=== PATIENT | female | born 1975 | race African-American/Black ===

== ENCOUNTER 2017-03-09 16:20 | Observation (INO) | payer BC ==
[2017-03-09] VITALS (8 sets, daily range): BP systolic 124–190; BP diastolic 71–95; PULSE 76–93; RESP 14–20; TEMP 98.4–99.2; O2SAT 97–100
[~2017-03-09] VITALS: Ht 157.5 cm; Wt 111.7 kg
[2017-03-09] MEDS ORDERED: HUMALOG SQ (16:33)
[2017-03-09] MEDS ORDERED: SODIUM CHLORIDE 0.9% FLUSH 10 ML FLUSH IVF PRN (16:45)
[2017-03-09] MEDS ORDERED: ASPIRIN 325 MG TAB PO ONE (16:45)
[2017-03-09] MEDS ORDERED: cloNIDine HCL 0.2 MG TAB PO ONE (16:45)
--- NOTE | 2017-03-09 16:47 | PD ---
HPI Chief Complaint: Chest Pain Time Seen by Provider: 16:38 Travel History International Travel<30 days: No Contact w/Intl Traveler<30days: No Traveled to known affect area: No History of Present Illness HPI The patient was seen and examined in the presence of the nurse. This patient complains of a 30 minute spell of shortness of breath and vague discomfort and nausea and general unease. She initially thought it might be a panic attack but denies history of anxiety or panic. She denies history of cardiac or pulmonary disease. No alleviating factors. It lasted 30 minutes and resolved on its own. No exacerbating factors. It was not exertionally induced. Severity was moderate. PFSH Past Medical History Anemia: Yes Diabetes: Yes Patient Takes Glucophage: No Hypertension: Yes ?: Not Past Surgical History Abdominal Surgery: Yes (GASTRIC BYPASS) Hysterectomy: Yes Social History Alcohol Use: No Tobacco Use: No Allergies-Medications (Allergen,Severity, Reaction): Coded Allergies: No Known Allergies (Unverified , 03/09/17) Reported Meds & Prescriptions Reported Meds & Active Scripts Active Reported Humalog Inj (Insulin Human Lispro) 1,000 Unit/10 Ml Vial 1-9 Units SQ PUMP Max dose at bedtime:( )units; sugars< 70,(0)units; sugars 150-199,(1)unit; sugars 200-249,(3)units; sugars 250-299,(5)units; sugars 300-349,(7)units; sugars more than 349,(9)units. Review of Systems General / Constitutional: No: Fever Eyes: No: Visual changes HENT: No: Headaches Cardiovascular: No: Chest Pain or Discomfort Respiratory: Positive: Shortness of Breath Gastrointestinal: Positive: Nausea, No: Abdominal Pain Genitourinary: No: Dysuria Musculoskeletal: No: Pain Skin: No Rash Neurologic: No: Weakness Psychiatric: Positive: Anxiety, No: Depression Endocrine: No: Polydipsia Hematologic/Lymphatic: No: Easy Bruising Physical Exam Narrative GENERAL: Well-nourished, well-developed patient in no apparent distress. SKIN: Focused skin assessment reveals no rash and nodules. Skin is Warm and dry. HEAD: Atraumatic. Normocephalic. EYES: Pupils equal and round. No scleral icterus. No injection or drainage. ENT: No nasal bleeding or discharge. Mucous membranes pink and moist. NECK: Trachea midline. No JVD. CARDIOVASCULAR: Regular rate and rhythm. No murmur appreciated. RESPIRATORY: No accessory muscle use. Clear to auscultation. Breath sounds equal bilaterally. GASTROINTESTINAL: Abdomen soft, obese, non-tender, nondistended. Hepatic and splenic margins not palpable. MUSCULOSKELETAL: No obvious deformities. No clubbing. No cyanosis. No edema. NEUROLOGICAL: Awake and alert. No obvious cranial nerve deficits. Motor grossly within normal limits. Normal speech. PSYCHIATRIC: Appropriate mood and affect; insight and judgment normal. Data Data Last Documented VS Vital Signs Date Time Temp Pulse Resp B/P (MAP) Pulse Ox O2 Delivery O2 Flow Rate FiO2 03/09/17 17:29 81 15 176/93 (120) 98 03/09/17 16:46 Room Air 03/09/17 16:27 99.2 Orders Orders Electrocardiogram (03/09/17 16:42) Basic Metabolic Panel (Bmp) (03/09/17 16:42) Ckmb (Isoenzyme) Profile (03/09/17 16:42) Complete Blood Count With Diff (03/09/17 16:42) Prothrombin Time / Inr (Pt) (03/09/17 16:42) Act Partial Throm Time (Ptt) (03/09/17 16:42) Troponin I (03/09/17 16:42) Chest, Single Ap (03/09/17 16:42) Ecg Monitoring (03/09/17 16:42) Iv Access Insert/Monitor (03/09/17 16:42) Oximetry (03/09/17 16:42) Aspirin (Aspirin) (03/09/17 16:45) Sodium Chloride 0.9% Flush (Ns Flush) (03/09/17 16:45) Clonidine (Catapres) (03/09/17 16:45) Beta Hcg (Quant/Titer) (03/09/17 16:42) CKMB (03/09/17 16:48) CKMB% (03/09/17 16:48) Labs Laboratory Tests Test 03/09/17 16:48 White Blood Count 7.2 TH/MM3 Red Blood Count 4.31 MIL/MM3 Hemoglobin 11.8 GM/DL Hematocrit 35.6 % Mean Corpuscular Volume 82.7 FL Mean Corpuscular Hemoglobin 27.4 PG Mean Corpuscular Hemoglobin Concent 33.2 % Red Cell Distribution Width 13.2 % Platelet Count 233 TH/MM3 Mean Platelet Volume 9.7 FL Neutrophils (%) (Auto) 58.2 % Lymphocytes (%) (Auto) 34.0 % Monocytes (%) (Auto) 6.6 % Eosinophils (%) (Auto) 0.5 % Basophils (%) (Auto) 0.7 % Neutrophils # (Auto) 4.2 TH/MM3 Lymphocytes # (Auto) 2.4 TH/MM3 Monocytes # (Auto) 0.5 TH/MM3 Eosinophils # (Auto) 0.0 TH/MM3 Basophils # (Auto) 0.1 TH/MM3 CBC Comment DIFF FINAL Differential Comment Prothrombin Time 10.7 SEC Prothromb Time International Ratio 1.0 RATIO Activated Partial Thromboplast Time 28.4 SEC Blood Urea Nitrogen 14 MG/DL Creatinine 1.20 MG/DL Random Glucose 166 MG/DL Calcium Level 8.9 MG/DL Sodium Level 134 MEQ/L Potassium Level 4.0 MEQ/L Chloride Level 105 MEQ/L Carbon Dioxide Level 21.1 MEQ/L Anion Gap 8 MEQ/L Estimat Glomerular Filtration Rate 59 ML/MIN Total Creatine Kinase 197 U/L Creatine Kinase MB 1.3 NG/ML Creatine Kinase MB % 0.7 % Troponin I LESS THAN 0.02 NG/ML Human Chorionic Gonadotropin, Quant LESS THAN 1 MIU/ML MDM Medical Decision Making Medical Screen Exam Complete: Yes Emergency Medical Condition: Yes Medical Record Reviewed: Yes Differential Diagnosis Anginal equivalent, panic attack, anxiety, GERD Narrative Course I have reviewed the patient's electronic medical record. IV placed I reviewed the EKG which shows sinus rhythm but no ST elevation or ectopy I reviewed the chest x-ray which is normal Extended cardiac monitoring shows sinus rhythm without ectopy CBC is normal Metabolic profile is normal CK is negative Troponin is negative Coagulation studies are normal Patient has accelerated hypertension, dose of clonidine given and I Will reassess Beta hCG is negative Gave her an aspirin. The patient had some vague symptomatology but she is a morbidly obese and hypertensive diabetic supposed chock full of cardiac risk factors. Plus she came in just 30 minutes after her spell so enzymes are not going to be particularly revealing for the initial set. She will be a 23 are observation the chest pain center to rule out cardiac cause of her symptoms. It is suspicious enough is an anginal variant. Diagnosis Primary Impression: Angina pectoris, variant Additional Impressions: Diabetes 1.5, managed as type 1 Hypertension Qualified Codes: I10 - Essential (primary) hypertension Obesity (BMI 30-39.9) Admitting Information Admitting Physician Requests: Observation Hernando Zapata MD Mar 09, 2017 16:47
[2017-03-09 17:15] LABS: CHLORIDE 105 MEQ/L (98-107); SODIUM (NA) 134 MEQ/L (136-145)
[2017-03-09 17:18] LABS: ANION GAP 8 MEQ/L (5-15); BICARBONATE 21.1 MEQ/L (21.0-32.0); BLOOD UREA NITROGEN 14 MG/DL (7-18)
[2017-03-09 17:19] LABS: APTT (PATIENT) 28.4 SEC (24.3-30.1); PROTHROMBIN TIME - PATIENT 10.7 SEC (9.8-11.6)
[2017-03-09 17:21] LABS: AUTOMATED NEUTROPHIL # 4.2 TH/MM3 (1.8-7.7); BASOPHIL # 0.1 TH/MM3 (0-0.2); BASOPHIL % 0.7 % (0.0-2.0); EOSINOPHIL % 0.5 % (0.0-4.0); HEMATOCRIT 35.6 % (35.0-46.0); HEMO FLAGS DIFF FINAL; LYMPHOCYTE # 2.4 TH/MM3 (1.0-4.8); MEAN CELL VOLUME 82.7 FL (80.0-100.0); MEAN CORPUSCULAR HEMOGLOBIN 27.4 PG (27.0-34.0); MEAN CORPUSCULAR HGB CONC 33.2 % (32.0-36.0); MONO % 6.6 % (0.0-8.0); NEUT % 58.2 % (16.0-70.0); PLATELET COUNT 233 TH/MM3 (150-450); RED BLOOD COUNT 4.31 MIL/MM3 (4.00-5.30); RED CELL DISTRIBUTION WIDTH 13.2 % (11.6-17.2); WHITE BLOOD COUNT 7.2 TH/MM3 (4.0-11.0)
[2017-03-09 17:22] LABS: GLOMERULAR FILTRATION RATE 59 ML/MIN (>89)
[2017-03-09 17:25] LABS: CREATINE KINASE 197 U/L (26-192)
[2017-03-09 17:26] LABS: BETA HCG QUANT LESS THAN 1 MIU/ML (0-5)
--- NOTE | 2017-03-09 17:34 | RADRPT ---
EXAM DATE/TIME: 03/09/2017 17:19 [facility] COMPARISON: No previous studies available for comparison. INDICATIONS : Chest pain today. MEDICAL HISTORY : Diabetes mellitus type II. Hypertension SURGICAL HISTORY : Hysterectomy. Gastric bypass. ENCOUNTER: Initial ACUITY: 1 day PAIN SCORE: 9/10 LOCATION: Bilateral chest FINDINGS: A single view of the chest demonstrates the lungs to be symmetrically aerated without evidence of mas s, infiltrate or effusion. The cardiomediastinal contours are unremarkable. Osseous structures are intact. CONCLUSION: No acute disease. Michael Walker MD on March 09, 2017 at 17:32 Board Certified Radiologist. This report was verified electronically.
[2017-03-09 17:37] LABS: CKMB 1.3 NG/ML (0.5-3.6)
[2017-03-09] MEDS ORDERED: MORPHINE SULFATE 4 MG/ML INJ IV PUSH PRN (18:15)
[2017-03-09] MEDS ORDERED: GLUCAGON 1 MG/ML VIAL OTHER PRN (18:15)
[2017-03-09] MEDS ORDERED: ACETAMINOPHEN 500 MG CPLT PO PRN (18:15)
[2017-03-09] MEDS ORDERED: ACETAMINOPHEN/HYDROcodone 325 MG/7.5 MG TAB PO PRN (18:15)
[2017-03-09] MEDS ORDERED: ONDANSETRON HCL 4 MG/2 ML VIAL IV PUSH PRN (18:15)
[2017-03-09] MEDS ORDERED: DEXTROSE 50% IN WATER 50 ML VIAL(D50) IV PUSH PRN (18:15)
[2017-03-09] MEDS ORDERED: INSULIN LISPRO PUMP SQ SCH (18:15)
[2017-03-09] MEDS ORDERED: NITROGLYCERIN 0.4 MG SL 25 TABS/BTL SL PRN (18:15)
[2017-03-09] MEDS ORDERED: SODIUM CHLORIDE 0.9% FLUSH 10 ML FLUSH IV FLUSH PRN (18:15)
[2017-03-09] MEDS ORDERED: hydrALAZINE HCL 20 MG/ML VIAL IV PUSH PRN (18:30)
[2017-03-09] MEDS ORDERED: ENALAPRILAT 1.25 MG/ML VIAL IV PUSH PRN (18:30)
[2017-03-09] MEDS: SODIUM CHLORID 0.9% 500 ML INJ 500 ML IV SCH ×2 (19:50→21:11)
[2017-03-09 20:21] LABS: CREATINE KINASE 149 U/L (26-192)
[2017-03-09] MEDS: SODIUM CHLORIDE 0.9% FLUSH 10 ML FLUSH IV FLUSH SCH (21:00)
[2017-03-09] MEDS: FAMOTIDINE 20 MG TAB PO SCH (21:00)
[2017-03-09] MEDS ORDERED: cloNIDine HCL 0.1 MG TAB PO PRN (22:50)
[2017-03-09 23:12] LABS: CREATINE KINASE 140 U/L (26-192)
[2017-03-09 23:24] LABS: CKMB 0.9 NG/ML (0.5-3.6)
[2017-03-10] VITALS: BP 141/85; PULSE 78; RESP 20; TEMP 98; O2SAT 97
[2017-03-10 04:00] VITALS: BP 134/86; PULSE 72; RESP 20; TEMP 98.4; O2SAT 96
[2017-03-10 06:28] LABS: POTASSIUM 3.4 MEQ/L (3.5-5.1)
[2017-03-10] MEDS: FAMOTIDINE 20 MG TAB PO SCH (07:57)
[2017-03-10 08:00] VITALS: BP 135/86; PULSE 73; PULSE 87; RESP 20; TEMP 98.4; O2SAT 98
[2017-03-10] MEDS ORDERED: POTASSIUM CHLORIDE 20 MEQ CONTROLLED RELEASE TAB PO ONE (08:00)
[2017-03-10] MEDS: SODIUM CHLORIDE 0.9% FLUSH 10 ML FLUSH IV FLUSH SCH (08:04)
[2017-03-10] MEDS ORDERED: ASPIRIN 325 MG TAB PO SCH (09:00)
--- NOTE | 2017-03-10 09:09 | HHI.HP ---
[facility] Primary Care Physician Admission Diagnosis poss anginal eviqualent Diagnoses: (1) Shortness of breath Diagnosis: Principal (2) Hypertensive urgency Diagnosis: Principal (3) TAYLOR (acute kidney injury) Diagnosis: Principal (4) Hypokalemia Diagnosis: Principal Chief Complaint: "I think I was having a panic attack" Travel History International Travel<30 Days: No Contact w/Intl Traveler <30 Da: No Traveled to Known Affected Are: No History of Present Illness 41 year-old -[place] female with diabetes mellitus, history of hypertension, and anemia is admitted to chest pain center. Patient presents stating "I think I was having a panic attack". 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 She states this occurred midday. States symptoms lasted for 45 minutes and were constant during that time. She denies any stressful event at the time of her symptoms but states she has been stressed in general. She states she felt short of breath and nauseous but denies any vomiting. She states her head started hurting as well. She denies any dizziness, lightheadedness, or visual changes. She denies any numbness or tingling in upper or lower extremities. Denies any diaphoresis. Denies any pain to the neck/jaw/back/shoulders. Denies symptoms being associated with exertion. Denies any recent leg swelling. She denies any fevers or chills, recent cold or cough symptoms. Denies any diarrhea. Denies a history of anxiety or depression. Patient denies any history of hyperlipidemia. She states she had a history of hypertension years ago and was on lisinopril but was taken off by her physician as her blood pressure was controlled. She has not been checking her blood pressure recently. She additionally complains of a rash under the breasts which she has had for a while. She states it was red but she has been using [employer] medicated powder and now it is dark. Review of Systems Constitutional: DENIES: Diaphoretic episodes, Fever, Chills, Dizziness Eyes: DENIES: Blurred vision, Double Vision Ears, nose, mouth, throat: DENIES: Throat pain, Ear Pain, Running Nose Respiratory: COMPLAINS OF: Shortness of breath, DENIES: Cough Cardiovascular: DENIES: Chest pain, Lower Extremity Edema Gastrointestinal: COMPLAINS OF: Nausea, DENIES: Constipation, Diarrhea, Vomiting Genitourinary: DENIES: Hematuria, Dysuria Musculoskeletal: DENIES: Back pain, Neck pain Integumentary: COMPLAINS OF: Rash Neurologic: COMPLAINS OF: Headache, DENIES: Paresthesias Psychiatric: DENIES: Depression +Stress Past Family Social History Past Medical History Diabetes mellitus Type 1.5. Uses an insulin pump. Hypertension Anemia Past Surgical History Gastric bypass Hysterectomy Reported Medications Reported Meds & Active Scripts Active Reported Humalog Inj (Insulin Human Lispro) 1,000 Unit/10 Ml Vial 1-9 Units SQ PUMP Max dose at bedtime:( )units; sugars< 70,(0)units; sugars 150-199,(1)unit; sugars 200-249,(3)units; sugars 250-299,(5)units; sugars 300-349,(7)units; sugars more than 349,(9)units. Trulicity Injection once weekly Allergies: Coded Allergies: No Known Allergies (Unverified , 03/09/17) Family History Family history of diabetes and hypertension. No history of FL or stroke. Social History Patient denies any alcohol use. Denies any history of cigarette smoking. Denies history of illicit drug use. Physical Exam Vital Signs Vital Signs Date Time Temp Pulse Resp B/P (MAP) Pulse Ox O2 Delivery O2 Flow Rate FiO2 03/10/17 08:00 98.4 73 20 135/86 (102) 98 03/10/17 04:00 98.4 72 20 134/86 (102) 96 03/10/17 00:00 98.0 78 20 141/85 (103) 97 03/09/17 23:00 76 03/09/17 20:15 98.6 80 20 151/91 (111) 100 03/09/17 19:57 76 14 124/71 (88) 100 03/09/17 19:29 98.4 76 14 124/71 (88) 100 Room Air 03/09/17 17:29 81 15 176/93 (120) 98 03/09/17 16:46 97 Room Air 03/09/17 16:27 99.2 93 15 190/95 (126) 97 Physical Exam Vitals normal. GENERAL: This is a pleasant obese, well-developed patient, in no apparent distress. SKIN: HEAD: Atraumatic. Normocephalic. EYES: No scleral icterus. No injection or drainage. NECK: Trachea midline. No lymphadenopathy. CHEST: No reproducible chest wall tenderness. CARDIOVASCULAR: Regular rate and rhythm without murmurs, gallops, or rubs. RESPIRATORY: Clear to auscultation. Breath sounds equal bilaterally. No wheezes , rales, or rhonchi. GASTROINTESTINAL: Abdomen soft, non-tender, nondistended. No guarding. MUSCULOSKELETAL: No calf tenderness or lower extremity edema bilaterally. NEUROLOGICAL: Awake and alert. Five out of 5 muscle strength in bilateral arms and legs. Normal speech. PSYCHIATRIC: Normal mood and affect. Insight and judgement normal. Laboratory Laboratory Tests Test 03/09/17 16:48 03/09/17 19:45 03/09/17 22:40 03/10/17 05:15 White Blood Count 7.2 Red Blood Count 4.31 Hemoglobin 11.8 Hematocrit 35.6 Mean Corpuscular Volume 82.7 Mean Corpuscular Hemoglobin 27.4 Mean Corpuscular Hemoglobin Concent 33.2 Red Cell Distribution Width 13.2 Platelet Count 233 Mean Platelet Volume 9.7 Neutrophils (%) (Auto) 58.2 Lymphocytes (%) (Auto) 34.0 Monocytes (%) (Auto) 6.6 Eosinophils (%) (Auto) 0.5 Basophils (%) (Auto) 0.7 Neutrophils # (Auto) 4.2 Lymphocytes # (Auto) 2.4 Monocytes # (Auto) 0.5 Eosinophils # (Auto) 0.0 Basophils # (Auto) 0.1 CBC Comment DIFF FINAL Differential Comment Prothrombin Time 10.7 Prothromb Time International Ratio 1.0 Activated Partial Thromboplast Time 28.4 Blood Urea Nitrogen 14 12 Creatinine 1.20 1.00 Random Glucose 166 139 Calcium Level 8.9 8.3 Sodium Level 134 139 Potassium Level 4.0 3.4 Chloride Level 105 108 Carbon Dioxide Level 21.1 23.0 Anion Gap 8 8 Estimat Glomerular Filtration Rate 59 73 Total Creatine Kinase 197 149 140 Creatine Kinase MB 1.3 1.0 0.9 Creatine Kinase MB % 0.7 Troponin I LESS THAN 0.02 LESS THAN 0.02 LESS THAN 0.02 Human Chorionic Gonadotropin, Quant LESS THAN 1 Result Diagram: 03/09/17 1648 03/10/17 0515 Imaging Last Impressions Chest X-Ray 03/09/171641 Signed Impressions: Service Date/Time: March 17:19 - CONCLUSION: No acute disease. MD Maycol Wagoner VTE Risk Assessment Caprini VTE Risk Assessment: Mod/High Risk (score >= 2) Caprini Risk Assessment Model Point Value = 1 Point Value = 2 Point Value = 3 Point Value = 5 Age 41-60 Minor surgery BMI > 25 kg/m2 Swollen legs Varicose veins or History of unexplained or recurrent spontaneous Oral contraceptives or hormone replacement Sepsis (< 1 month) Serious lung disease, including pneumonia (< 1 month) Abnormal pulmonary function Acute myocardial infarction Congestive heart failure (< 1 month) History of inflammatory bowel disease Medical patient at bed rest Age 61-74 Arthroscopic surgery Major open surgery (> 45 min) Laparoscopic surgery (> 45 min) Malignancy Confined to bed (> 72 hours) Immobilizing plaster cast Central venous access Age >= 75 History of VTE Family history of VTE Factor V Leiden Prothrombin [id number] Lupus anticoagulant Anticardiolipin antibodies Elevated serum homocysteine Heparin-induced thrombocytopenia Other congenital or acquired thrombophilia Stroke (< 1 month) Elective arthroplasty Hip, pelvis, or leg fracture Acute spinal cord injury (< 1 month) Prophylaxis Regimen Total Risk Factor Score Risk Level Prophylaxis Regimen 0-1 Low Early ambulation 2 Moderate Order ONE of the following: *Sequential Compression Device (SCD) *Heparin 5000 units SQ BID 3-4 Higher Order ONE of the following medications: *Heparin 5000 units SQ TID *Enoxaparin/Lovenox 40 mg SQ daily (WT < 150 kg, CrCl > 30 mL/min) *Enoxaparin/Lovenox 30 mg SQ daily (WT < 150 kg, CrCl > 10-29 mL/min) *Enoxaparin/Lovenox 30 mg SQ BID (WT < 150 kg, CrCl > 30 mL/min) AND/OR *Sequential Compression Device (SCD) 5 or more Highest Order ONE of the following medications: *Heparin 5000 units SQ TID (Preferred with Epidurals) *Enoxaparin/Lovenox 40 mg SQ daily (WT < 150 kg, CrCl > 30 mL/min) *Enoxaparin/Lovenox 30 mg SQ daily (WT < 150 kg, CrCl > 10-29 mL/min) *Enoxaparin/Lovenox 30 mg SQ BID (WT < 150 kg, CrCl > 30 mL/min) AND *Sequential Compression Device (SCD) Assessment and Plan Assessment and Plan 41-year-old female with: Shortness of breath: Patient never had any actual chest pain, but was brought into chest pain center as this could be anginal equivalent as the patient does have risk factors including obesity and diabetes as well as history of hypertension. Likely differential is panic attack as patient has had increased stress in her life. She is asymptomatic at this time. EKGs 3 personally interpreted with normal sinus rhythm and no evidence of ischemia. Troponin 3 less than 0.02. CK-MB 3 normal. Chest x-ray personally interpreted with no acute disease. -325 mg by mouth daily aspirin -Nitroglycerin/Seneca/morphine prn chest pain -Telemetry -We have a recorded weight of approximately 245 pounds, but the patient states she saw a bariatric surgeon one month ago and weighed 215 and does not feel she has gained weight since that time. Even so patient is at least severely obese if not morbidly obese and cannot undergo ETT because of this. Lexiscan ordered. Hypertensive urgency/h/o HTN: BP 190/95 on arrival. Improved with 0.2 mg Clonidine given in ED. Patient was on Lisinopril in the past, but was taken off of it due to improved BP. -Clonidine, Enalapril, and hydralazine prn but patient has not required any of these overnight. -Continue to monitor. TAYLOR: Resolved. Creatinine mildly elevated at 1.2 yesterday with a CK mildly elevated at 197. -Patient was given 500 mL normal saline and creatinine this morning is now within normal limits. CK improved overnight. Hypokalemia: Mild 3.4 this morning. -Patient given 20 mEq by mouth KCl Diabetes 1.5: -Bedside Accu-checks -Patient to continue using insulin pump, but was advised to abstain from administering insulin while NPO and BGL less than 200. -Patient states she does not eat healthy. She is advised to eat a heart healthy diabetic diet. NPO now for testing. GI prophylaxis: Pepcid DVT prophylaxis: SCDs Myocardial perfusion scan is normal with EF of 56%. Telemetry reviewed with no acute events. Patient likely had a panic attack. She is advised to reduce stress with exercise, eating healthy, and getting adequate sleep. Patient's blood pressure this afternoon is again elevated in the 170s confirmed with manual measurement. She has a history of hypertension but has not been on medication recently. She came in with hypertensive urgency yesterday which was improved with clonidine 0.2mg. I have asked nurse to administer dose of clonidine 0.1 mg right now and patient will be prescribed Amlodipine 5 mg daily for home according to JNC 8 HTN guidelines. Patient is advised to keep a log of blood pressures at home; she does have a cuff at home. She does have insurance and is advised to obtain a primary care physician. Discharge disposition: Home in stable condition. Diet: Heart healthy, diabetic, weight management. Activity: Regular Medications: Resume insulin pump and Trulicity at home. Prescription for Amlodipine. Follow-up: PCP 1 week Chata Jackson Mar 10, 2017 09:09
[2017-03-10 11:34] VITALS: BP 121/81; PULSE 77; RESP 20; TEMP 97.5; O2SAT 97
--- NOTE | 2017-03-10 13:15 | EKG ---
Date Performed: 03/09/2017 Time Performed: 22:29:31 PTAGE: 41 years EKG: Sinus rhythm NORMAL ECG PREVIOUS TRACING : 03/09/2017 19.34 Compared to prior tracing no significant change DOCTOR: Michael Kimball Interpretating Date/Time 03/10/2017 13:11:51
--- NOTE | 2017-03-10 13:15 | EKG ---
Date Performed: 03/09/2017 Time Performed: 16:26:50 PTAGE: 41 years EKG: Sinus rhythm NORMAL ECG NO PREVIOUS TRACING DOCTOR: Michael Kimball Interpretating Date/Time 03/10/2017 13:11:37
--- NOTE | 2017-03-10 13:15 | EKG ---
Date Performed: 03/09/2017 Time Performed: 19:34:13 PTAGE: 41 years EKG: Sinus rhythm NORMAL ECG PREVIOUS TRACING : 03/09/2017 16.26 Compared to prior tracing no significant change DOCTOR: Michael Kimball Interpretating Date/Time 03/10/2017 13:11:44
--- NOTE | 2017-03-10 14:57 | TR ---
Date Performed: 03/10/2017 Time Performed: 14:30:07 DOCTOR: Jairo Boss DRUG LIST: CLINICAL HISTORY: CHEST PAIN REASON FOR TEST: Chest pain REASON FOR ENDING: OBSERVATION: CONCLUSION: Lexiscan stress test was performed under standard four minute protocol. Radionuclid e was injected one minute prior to ending the test. No electrocardiographic abormalities were present to suggest ischemia. Nuclear imaging and interpretation are pending. COMMENTS:
[2017-03-10 16:00] VITALS: BP 175/93; PULSE 81; RESP 20; TEMP 97.6; O2SAT 98
--- NOTE | 2017-03-10 16:07 | RADRPT ---
EXAM DATE/TIME: 03/10/2017 14:02 [facility] COMPARISON: No previous studies available for comparison. INDICATIONS : Chest pain with dyspnea. Angina. Unable to walk on treadmill. DOSE: 35 mCi Tc99m Myoview at stress. 11 mCi Tc99m Myoview at rest. 0.4 mg Lexiscan STRESS SYMPTOMS: Chest pressure and dyspnea. EJECTION FRACTION: 56% MEDICAL HISTORY : Hypertension. Diabetes mellitus type 2. SURGICAL HISTORY : Hysterectomy. Gastric bypass. ENCOUNTER: Initial ACUITY: 1 day PAIN SCALE: 6/10 LOCATION: Substernal chest TECHNIQUE: The patient underwent pharmacologic stress with infusion of prescribed dose. Continuous ECG tracing was monitored during stress. Gated SPECT imaging was performed after stress and conventional SPECT i maging was performed at rest. The examination was performed on a SPECT/CT scanner, both attenuation and non-corrected datasets were reviewed. FINDINGS: DISTRIBUTION: The maximum perfused segment at stress is in the inferior wall. PERFUSION STUDY: The pattern of perfusion at stress is within normal limits. GATED STUDY: There is intact wall motion and thickening without hypokinetic or dyskinetic segments. CONCLUSION: 1. No reversible perfusion defects to suggest ischemia. 2. Ejection fraction 56% RISK CATEGORY: Low (<1% Annual Mortality Rate) Swapnil Vaca MD on March 10, 2017 at 16:04 Board Certified Radiologist. This report was verified electronically.
[2017-03-10] MEDS ORDERED: AMLO5TAB2 PO (17:04)
--- NOTE | 2017-03-10 17:05 | HHI.DCPOC ---
Discharge Care Plan Diagnosis: (1) Shortness of breath (2) Hypertensive urgency (3) TAYLOR (acute kidney injury) (4) Hypokalemia Your Health Problems Are: Shortness of Breath Goals to Promote Your Health * To prevent worsening of your condition and complications * To maintain your health at the optimal level Directions to Meet Your Goals Take your medications as prescribed Follow your dietary instruction Follow activity as directed Keep your appointments as scheduled Take your immunizations and boosters as scheduled If your symptoms worsen call your PCP, if no PCP go to Urgent Care Center or Emergency Room Smoking is Dangerous to Your Health. Avoid second hand smoke Call the 24-hour hour crisis hotline for domestic abuse at Chata Jackson Mar 10, 2017 17:05
[2017-03-10] MEDS ORDERED: REGADENOSON INJ 0.4 MG/5 ML SYR IV ONE (18:37)
== END 2017-03-10 17:34 | disposition home or self-care (01) ==
LOC: PHED 16:20 → PHEDA 18:36 → PH3B 20:09
PROVIDERS: ADMIT Family Medicine; ATTEND Family Medicine
DX: R06.02 Shortness of breath (principal); I16.0 Hypertensive urgency; I10 Essential (primary) hypertension; N17.9 Acute kidney failure, unspecified; E87.6 Hypokalemia; E66.01 Morbid (severe) obesity due to excess calories; E10.9 Type 1 diabetes mellitus without complications; F41.0 Panic disorder [episodic paroxysmal anxiety]; Z79.4 Long term (current) use of insulin; Z79.82 Long term (current) use of aspirin; Z96.41 Presence of insulin pump (external) (internal); Z68.42 Body mass index [BMI] 45.0-49.9, adult
CPT/HCPCS: 71010; 78452; 80048; 82550; 82552; 82948; 84484; 84702; 85025; 85610; 85730; 93005; 93017; 96360; 99285; A9502; G0378; J2785; J7040